=== PATIENT | male | born 1955 | race Caucasian/White ===

== ENCOUNTER 2018-08-15 12:13 | Inpatient (IN) | payer BC ==
[~2018-08-15] VITALS: Ht 193 cm; Wt 127.5 kg
[2018-08-15] VITALS (27 sets, daily range): BP systolic 93–152; BP diastolic 48–92; PULSE 56–112; RESP 12–22; Ht 193 cm; Wt 127.5 kg
[2018-08-15] MEDS ORDERED: LATA2.5D2 OP (12:49)
[2018-08-15] MEDS ORDERED: LOSA100T15 ORAL (12:49)
[2018-08-15] MEDS ORDERED: ATOR20TA65 ORAL (12:49)
[2018-08-15] MEDS ORDERED: GABA300C16 ORAL (12:49)
[2018-08-15] MEDS ORDERED: THROMBIN (BOVINE) 5,000 UNIT VIAL TP ONE (14:12)
[2018-08-15] MEDS ORDERED: BUPIVACAINE 0.25%/EPI (SDV) 30 ML INJ ONE (14:12)
[2018-08-15] MEDS ORDERED: SURGIFOAM POWDER 1 GM KIT ONE (14:12)
[2018-08-15] MEDS ORDERED: POLYMYXIN/BACITRACIN 1L IRRIG ONE (14:13)
[2018-08-15] MEDS ORDERED: HEPARIN 1000 UNITS/ML 10 ML INJ ONE (14:13)
[2018-08-15] MEDS ORDERED: CA CHLORIDE 10% 10 ML SYRINGE ONE (14:13)
--- NOTE | 2018-08-15 14:18 | PREAC ---
Date/Time of Note Date/Time of Note DATE: 08/15/18 TIME: 14:15 Anesthesia Eval and Record Evaluation Time Pre-Procedure Interview DATE: 08/15/18 TIME: 14:15 Age 63 Sex male NPO: 8 hrs Preoperative diagnosis L3-L4 stenosis and intraspinal, extradural cyst and radiculopathy Planned procedure L3-L4 decompression with removal of interspinal, extradural cyst Past Medical History Past Medical History: Includes Cardio: HTN, Dyslipidemia GI: Obesity Surgery & Anesthesia Issues No known issue Meds Anticoagulation: No Beta Jolie within 24 hr: No Reason Beta Jolie not given: Pt. not on B-Jolie Reported Medications Gabapentin* (Gabapentin*) 300 Mg Capsule, 1 CAP ORAL TID 08/15/18 Atorvastatin Calcium (Atorvastatin Calcium) 20 Mg Tablet, 1 TAB ORAL DAILY 08/15/18 Losartan Potassium* (Losartan Potassium*) 100 Mg Tablet, 1 TAB ORAL DAILY 08/15/18 Latanoprost (Latanoprost) 2.5 Ml Drops, 1 DROP OP QHS 08/15/18 Meds reviewed: Yes Allergies Coded Allergies: No Known Allergy (Unverified , 08/15/18) Allergies Reviewed: Yes Labs/Studies Labs Reviewed: Reviewed by anesthesiologist test: N/A Studies: ECG, CXR Pre-procedure Exam Last vitals Vital Signs Date Temp Pulse Resp B/P (MAP) Pulse Ox O2 O2 Flow FiO2 Time Delivery Rate 08/15/18 98.1 70 16 136/92 99 Room Air 13:18 (107) Airway: Adequate mouth opening, Adequate thyromental dist Mallampati: Mallampati II Teeth: Normal Lung: Normal Heart: Normal ASA Physical Status ASA physical status: 2 Emergency: None Planned Anesthetic General/MAC: ETT Planned Pain Management Parenteral pain med Pre-operative Attestations Prior to commencing anesthesia and surgery, the patient was re-evaluated, there was verification of: *The patient's identity *The results of appropriate recent lab work and preoperative vital signs *The above evaluation not changing prior to induction *Anesthetic plan, risk benefits, alternative and complications discussed with patient/family; questions answered; patient/family understands, accepts and wishes to proceed. MICHA MEEK MD Aug 15, 2018 14:18
--- NOTE | 2018-08-15 14:27 | HPN ---
Date/Time of Note Date/Time of Note DATE: 08/15/18 TIME: 14:27 Interval H&P Admission Note Pt. seen H&P reviewed: No system changes LISET CERRATO PA-C Aug 15, 2018 14:27
[2018-08-15] MEDS ORDERED: HYDROCODONE/APAP (10/325) TAB PO PRN ×2 (14:30)
[2018-08-15] MEDS ORDERED: BISACODYL 10 MG SUPP PR PRN (14:30)
[2018-08-15] MEDS ORDERED: DIPHENHYDRAMINE 25 MG CAP PO PRN (14:30)
[2018-08-15] MEDS ORDERED: NALOXONE (0.4 MG/ML) INJ IV PRN (14:30)
[2018-08-15] MEDS ORDERED: DIPHENHYDRAMINE 50 MG INJ IV PRN ×2 (14:30→15:00)
[2018-08-15] MEDS ORDERED: HYDROmorphONE 0.5 MG/0.5 ML SYG IV PRN (14:30)
[2018-08-15] MEDS ORDERED: AL HYDROX/MG HYDROX/SIMETH 30 ML CUP PO PRN (14:30)
[2018-08-15] MEDS ORDERED: CYCLOBENZAPRINE 10 MG TAB PO PRN (14:30)
[2018-08-15] MEDS ORDERED: CEPASTAT LOZENGE MT PRN (14:30)
[2018-08-15] MEDS ORDERED: ONDANSETRON 4 MG INJ IV PRN ×2 (14:30→15:00)
[2018-08-15] MEDS ORDERED: ACETAMINOPHEN 325 MG TAB PO PRN (14:30)
[2018-08-15] MEDS ORDERED: FENTAnyl 50 MCG/ML VIAL ONE (14:56)
[2018-08-15] MEDS ORDERED: MIDAZOLAM 1 MG/ML 2 ML INJ ONE (14:56)
[2018-08-15] MEDS ORDERED: FENTAnyl 50 MCG/ML VIAL IV PRN ×3 (15:00)
[2018-08-15] MEDS ORDERED: EPHEDrine SULFATE 50 MG/5 ML SYG IV PRN (15:00)
[2018-08-15] MEDS ORDERED: HYDROmorphONE 1 MG/5 ML IV SYRINGE IV PRN ×3 (15:00)
[2018-08-15] MEDS ORDERED: PROCHLORPERAZINE 10 MG INJ IV PRN (15:00)
[2018-08-15] MEDS ORDERED: LABETALOL HCL 20MG INJ IV PRN (15:00)
[2018-08-15] MEDS ORDERED: hydrALAzine 20 MG INJ IV PRN (15:00)
[2018-08-15] MEDS ORDERED: OXYCODONE/ACETAMINOPHEN (5/325) TAB PO PRN (15:00)
[2018-08-15] MEDS ORDERED: MEPERIDINE 25 MG INJ IV PRN (15:00)
[2018-08-15] MEDS ORDERED: LIDOCAINE 2% (SDV) 5 ML INJ ONE (15:14)
[2018-08-15] MEDS ORDERED: PROPOFOL 40 ML ONE (15:14)
[2018-08-15] MEDS ORDERED: CEFAZOLIN 1 GM INJ ONE (15:18)
[2018-08-15] MEDS ORDERED: SUCCINYLCHOLINE CHLORIDE 100 MG/5 ML SYG IV ONE ×2 (15:37)
[2018-08-15] MEDS ORDERED: HYDROmorphONE 2 MG/ML SYG ONE (15:38)
[2018-08-15] MEDS ORDERED: DEXAMETHASONE 4 MG/ML 5 ML INJ ONE (15:38)
[2018-08-15] MEDS ORDERED: ROCURONIUM 50 MG INJ ONE ×2 (15:38→15:56)
[2018-08-15] MEDS ORDERED: ONDANSETRON 4 MG INJ ONE (15:38)
[2018-08-15] MEDS ORDERED: FAMOTIDINE 20 MG INJ ONE (15:38)
[2018-08-15] MEDS: CEFAZOLIN 1 GM/50 ML (PMX) 50 ML IVPB SCH (18:19)
--- NOTE | 2018-08-15 18:48 | PAC ---
Date/Time of Note Date/Time of Note DATE: 08/15/18 TIME: 18:47 Post-Anesthesia Notes Post-Anesthesia Note Last documented vital signs Vital Signs Date Temp Pulse Resp B/P (MAP) Pulse Ox O2 O2 Flow FiO2 Time Delivery Rate 08/15/18 Nasal 2.0 18:30 Cannula 08/15/18 98.5 18:03 08/15/18 70 16 136/92 99 13:18 (107) Activity: WNL Respiratory function: WNL Cardiovascular function: WNL Mental status: Baseline Pain reasonably controlled: Yes Hydration appropriate: Yes Nausea/Vomiting absent: Yes Comments BP: 139/65 HR; 98 RR: 15 T: 98.5 SaO2:99% MICHA MEEK MD Aug 15, 2018 18:48
[2018-08-15] MEDS: HYDROmorphONE 0.2 MG/ML PCA IV SCH (20:16)
--- NOTE | 2018-08-15 20:39 | OPR ---
DATE OF OPERATION: 08/15/2018 PREOPERATIVE DIAGNOSES: 1. 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 2. Lumbar radiculopathy. 3. Previous L4-L5 instrumented fusion POSTOPERATIVE DIAGNOSIS: 1. 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 2. Lumbar radiculopathy. 3. Previous L4-L5 instrumented fusion PROCEDURES PERFORMED: 1. L3-L4 decompression with removal of bilateral intraspinal extradural cyst. 2. Use of C-arm fluoroscopy with interpretation without radiologist present. 3. Use of operative microscope. 4. Intraoperative neuromonitoring. PRIMARY SURGEON: Ricco Pradhan M.D. CTE TEACHER: Essence Kirk PA-C. NEED FOR COURT BAILIFF: During this spinal surgical procedure, my pet care assistant was used to retract and protect the spinal nerves and dural sac. My pet care assistant also employed the suction catheters to ev acuate blood from the surgical field to improve visualization of the neural structures. The assistan t was medically necessary to facilitate the completion of the surgery in a safe and expeditious [facility]. [facility] regulations, as well as hospital bylaws, preclude the use of non-licensed [facility] care personnel, such as operating room technicians, to perform these functions. FINDINGS: Neuromonitoring at the start of the case revealed left L3 amplitude down 50%, right L3 bang n 20%, left L4 down 60%, right L4 down 20%, left L5 down 40%, right L5 down 30%. At the end of the c ase, nerve signals returned to normal. The patient had synovial cysts bilaterally at L3-L4 resulting in stenosis. The scar tissue was encountered from the previous surgery. ESTIMATED BLOOD LOSS: Less than 50 mL. DRAINS: 1. SPECIMENS: L3 spinous processes well as synovial cyst from L3-L4. COMPLICATIONS OF PROCEDURES: None. ANESTHESIOLOGIST: Dr. Richardson. TYPE OF ANESTHESIA: General. INDICATIONS FOR PROCEDURE: This is a 63-year-old gentleman who had previously undergone L4-L5 instru mented fusion. He developed a synovial cyst at the L3-L4 level, which resulted in stenosis. This ca used pain down his lower extremities. He failed nonoperative measures; therefore, it is recommended he undergo the above procedure. Preoperatively, we discussed risks, benefits, and alternatives. He understood and wished to proceed. We discussed just a decompression, but he understood that he may r equire a fusion procedure in the future. DESCRIPTION OF PROCEDURE IN DETAIL: The patient was identified in the preoperative holding area, giv en 3 grams of Ancef, taken to the operating room, where he was successfully placed under general anes thesia. Neuromonitoring leads were placed, sequential compressive devices were applied. Remote intr aoperative neuromonitoring was performed by Dr. Alfaro from 15:00 until 17:40 to include SSEP, MEP , and EMG performed by [employer] [facility]. The patient was placed on prone position over [place] frame. All bony prominences were well padded. The back was then prepped and draped in a sterile fashion. Using the sterile fluoroscope, I identified the incision site. I used a portion of the patient's pr evious incision using the superior half. I injected Marcaine and epinephrine. I incised the skin do wn to dorsal fascia. I then incised the dorsal fascia and subperiosteally dissected the L3 lamina bi laterally. Significant scar tissue was encountered altering the field and adding at least 30 minutes to the procedure. I then subperiosteally dissected the L4 lamina. I identified the pedicle screws of L3. I then placed Kochers around the L3 spinous processes and took a lateral film to confirm the correct levels. Once this was confirmed, I removed the spinous process with a Jayme rongeur and se nt this off to pathology. I then used a high-speed bur to thin down the lamina. I then performed a central decompression of L3. I left the superior portion of the lamina intact in order to not fully destabilize the level. I then also made sure I left the pars intact and the majority of the facets. Ligamentum flavum was then I encountered. Microscope was brought in and under the microscope, I div ided the ligamentum flavum in the midline. I then initially removed the ligamentum flavum on the rig ht side as well as a synovial cyst on the right side, which was intraspinally located, but extradural located. Once this was done, I was able to decompress the lateral recess as well as the exiting L4 nerve root. I then turned my attention to the left. He had a synovial cyst was even more adherent to the dura as it was on the right side. I then removed ligamentum flavum and a synovial cyst on this side as well and decompressed the L4 nerve root. Once this was done, I achieved hemostasis with bipolar cautery. Valsalva was performed and there was no leak of CSF. All nerve signals returned to normal. At thi s point. I irrigated the wound. I then placed a deep subfascial drain. I injected PPP and thrombin for hemostatic purposes. I then closed deep fascia with a #1 Vicryl stitch. Microscope was taken o ff the field. A closed subcutaneous tissue with a 2-0 Vicryl stitch. A 4-0 Monocryl closure was the n performed. Dermabond and sterile dressings were then applied. The patient was awakened from anest hesia and taken to the recovery room in stable condition. Lap, sponge and needle counts were correct x2. There were no apparent complications during the procedure. The patient will be admitted to the orthopedic gomes for routine postoperative care to include pain co ntrol, neurovascular checks, antibiotics, and physical therapy. Dictated By: RICCO PRADHAN MD BB/NTS Conf#: [id number] DID#: [id number] CC: RICCO PRADHAN MD; TONIA RAE MD;*EndCC*
[2018-08-15] MEDS ORDERED: LATANOPROST 0.005% 2.5 ML OPH BOTH EYES SCH (21:00)
--- NOTE | 2018-08-15 21:03 | CONS ---
DATE OF ADMISSION: 08/15/2018 DATE OF CONSULTATION: 08/15/[address] Pradhan: Thank you, Dr. Pradhan for asking me to participate in medical management of this patient. REASON FOR CONSULTATION: To manage the patient's hyperlipidemia, hypertension. HISTORY OF PRESENT ILLNESS: This 63-year-old man has been having low back pain that radiates into shant th buttocks. He failed medical therapy and decided to undergo surgery, which was done today by Dr. Dinah yeh. The patient has been having this pain for about 6 months. He underwent an L3-L4 level dec ompression with removal of intraspinal extradural cyst. PAST MEDICAL HISTORY: Remarkable for asthma as a child, glaucoma, hypertension, hypothyroidism, hype rlipidemia, osteoarthritis. PAST SURGICAL HISTORY: Arthroscopic hip surgery, arthroscopic knee surgery, bilateral cataract extra ction, cholecystectomy, gastric bypass, previous lumbar spine fusion surgery, palate uvula biopsy exc ision. CURRENT MEDICATIONS: 1. Atorvastatin 20 mg a day. 2. Gabapentin 300 mg 3 times a day. 3. Latanoprost ophthalmic solution both eyes at bedtime. 4. Losartan 100 mg a day. 5. Buprenorphine 2 mg sublingual p.r.n. 6. Celebrex 200 mg twice a day, not taking since 08/04/18. SOCIAL HISTORY: The patient is . Former smoker, drinks alcohol occasionally. PHYSICAL EXAMINATION: GENERAL: At this time reveals a well-developed man in no apparent distress. VITAL SIGNS: Temperature 98, pulse is 70, respirations 16, blood pressure 136/92, O2 saturation 99% on 2 liters nasal cannula. HEENT: Head normocephalic. Eyes: Extraocular muscles are intact. NOSE AND MOUTH: Normal. NECK: Supple. No neck vein distention. LUNGS: Clear to auscultation. HEART: Regular rhythm. No murmurs, gallops or rubs. ABDOMEN: Soft, nontender, no masses or organomegaly. EXTREMITIES: No peripheral edema. IMPRESSION: 1. This patient is now postop a lumbar spine surgery. He is awake and alert and answers questions a ppropriately. His vital signs are stable and he seems comfortable with his pain under control. I wi ll manage the patient's hypertension, hyperlipidemia and glaucoma. PLAN: 1. Resume routine medications. 2. Check labs in the morning. 3. Postop lumbar spine surgery protocol. 4. I will follow the patient along with you medically. Dictated By: MARCIE LLAMAS MD ND/YAAKOV Conf#: [id number] DID#: [id number] CC: TONIA RAE MD; YAZMIN PRADHAN MD;*End*
[2018-08-15] MEDS: GABAPENTIN 300 MG CAP PO SCH (22:47)
[2018-08-15] MEDS: DOCUSATE SODIUM 100 MG CAP PO SCH (22:48)
[2018-08-15] MEDS: D5W-0.45 NACL + KCL 20 MEQ 1,000 ML IV SCH (22:50)
[2018-08-16] MEDS: D5W-0.45 NACL + KCL 20 MEQ 1,000 ML IV SCH ×2 (00:27→08:35)
[2018-08-16 00:30] VITALS: BP 114/61; PULSE 103
[2018-08-16 01:30] VITALS: BP 113/62; PULSE 95; RESP 18
[2018-08-16] MEDS: CEFAZOLIN 1 GM/50 ML (PMX) 50 ML IVPB SCH ×2 (01:39→08:31)
[2018-08-16] MEDS: HYDROmorphONE 0.2 MG/ML PCA IV SCH ×2 (02:50→13:25)
[2018-08-16 07:17] VITALS: BP 131/72; PULSE 74; RESP 18
[2018-08-16] MEDS: DOCUSATE SODIUM 100 MG CAP PO SCH (08:32)
[2018-08-16] MEDS: GABAPENTIN 300 MG CAP PO SCH ×2 (08:33→13:24)
[2018-08-16] MEDS ORDERED: LOSARTAN 50 MG TAB PO SCH ×2 (09:00→21:00)
[2018-08-16] MEDS ORDERED: ATORVASTATIN 20 MG TAB PO SCH (09:00)
--- NOTE | 2018-08-16 09:02 | CONS ---
Assessment/Plan Assessment/Plan Hospital Course (Demo Recall) 1. This patient is now 1 day postop a lumbar spine surgery. He is doing well. He is afebrile, vital signs are stable, and his laboratory tests are acceptable. He will continue physical therapy as tolerated. His routine medications have been reordered. Consultation Date/Type/Reason Admit Date/Time Aug 15, 2018 at 12:13 Initial Consult Date Type of Consult Medicine Date/Time of Note DATE: 08/16/18 TIME: 09:00 24 HR Interval Summary Free Text/Dictation He is 1 day postop a lumbar spine surgery. He is awake and alert. He feels well . The leg pain that he had preoperatively but the has diminished. Constitutional: no complaints, improved Exam/Review of Systems Exam Vitals Vital Signs Date Temp Pulse Resp B/P (MAP) Pulse Ox O2 O2 Flow FiO2 Time Delivery Rate 08/16/18 98.2 74 18 131/72 97 07:17 (91) 08/16/18 Nasal 2.0 01:30 Cannula Intake and Output 08/15/18 08/15/18 08/16/18 1515:00 23:00 07:00 IntakeIntake Total 2310 ml 1130 ml OutputOutput Total 120 ml 1050 ml BalanceBalance 2190 ml 80 ml Constitutional: alert, oriented, well developed Respiratory: clear to auscultation, normal air movement Cardiovascular: regular rate and rhythm Gastrointestinal: soft, non-tender Musculoskeletal: nl extremities to inspection Results Result Diagram: 08/16/18 0446 08/16/18 0446 Results 24hrs Laboratory Tests Test 08/16/18 04:46 08/16/18 07:29 White Blood Count 11.7 H Red Blood Count 3.88 L Hemoglobin 13.4 L Hematocrit 39.6 L Mean Corpuscular Volume 102.1 H Mean Corpuscular Hemoglobin 34.5 H Mean Corpuscular Hemoglobin Concent 33.8 Red Cell Distribution Width 12.2 Platelet Count 135 L Mean Platelet Volume 10.1 Immature Granulocytes % 0.300 Neutrophils % 78.9 H Lymphocytes % 10.8 L Monocytes % 9.8 Eosinophils % 0.0 Basophils % 0.2 Nucleated Red Blood Cells % 0.0 Immature Granulocytes # 0.040 H Neutrophils # 9.2 H Lymphocytes # 1.3 Monocytes # 1.1 H Eosinophils # 0.0 Basophils # 0.0 Nucleated Red Blood Cells # 0.0 Sodium Level 139 Potassium Level 5.0 Chloride Level 106 Carbon Dioxide Level 24 Anion Gap 9 Blood Urea Nitrogen 13 Creatinine 0.78 Est Glomerular Filtrat Rate mL/min > 60 Glucose Level 125 Calcium Level 9.0 Magnesium Level 1.9 Lab Scanned Report REFERENCE LAB Medications Medication Current Medications Potassium Chloride/Dextrose/ Sod Cl 1,000 ml @ 100 mls/hr Q10H IV Last administered on 08/16/18at 08:35; Admin Dose 100 MLS/HR; Start 08/15/18 at 14:27 Acetaminophen/ Hydrocodone Bitart (Ona (10325)) 1 tab Q4H PRN PO .PAIN 1-5; Start 08/15/18 at 14:30 Acetaminophen/ Hydrocodone Bitart (Ona (10325)) 2 tab Q4H PRN PO .PAIN 6-10 Last administered on 08/15/18at 19:48; Admin Dose 2 TAB; Start 08/15/18 at 14:30 Hydromorphone HCl (Dilaudid) 0.2 mg Q1H PRN IV .BREAKTHROUGH PAIN; Start 08/15/18 at 14:30 Ondansetron HCl (Zofran Inj) 4 mg Q6H PRN IV NAUSEA/VOMITING; Start 08/15/18 at 14:30 Bisacodyl (Dulcolax Supp) 10 mg DAILY PRN HI .CONSTIPATION; Start 08/15/18 at 14:30 Docusate Sodium (Colace) 100 mg BID PO Last administered on 08/16/18at 08:32; Admin Dose 100 MG; Start 08/15/18 at 21:00 Al Hydrox/Mg Hydrox/Simethicone (Mag-Al Plus) 15 ml Q6H PRN PO .CONSTIPATION/DYSPEPSIA; Start 08/15/18 at 14:30 Acetaminophen (Tylenol Tab) 650 mg Q4H PRN PO PEDERSON OR TEMP GREATER THAN 101.3F; Start 08/15/18 at 14:30 Cyclobenzaprine HCl (Flexeril) 10 mg TID PRN PO .MUSCLE SPASMS; Start 08/15/18 at 14:30 Phenol (Cepastat Lozenge) 1 lozenge PRN PRN MT .SORE THROAT; Start 08/15/18 at 14:30 Diphenhydramine HCl (Benadryl) 25 mg Q6H PRN PO .ITCHING; Start 08/15/18 at 14:30 Diphenhydramine HCl (Benadryl) 25 mg Q6H PRN IV .ITCHING; Start 08/15/18 at 14:30 Naloxone HCl (Narcan) 0.2 mg Q2M PRN IV .RR 8 BREATHS/MIN OR LESS; Start 08/15/18 at 14:30 Atorvastatin Calcium (Lipitor) 20 mg DAILY PO Last administered on 08/16/18at 08:32; Admin Dose 20 MG; Start 08/16/18 at 09:00 Gabapentin (Neurontin) 300 mg TID PO Last administered on 08/16/18at 08:33; Admin Dose 300 MG; Start 08/15/18 at 21:00 Latanoprost (Xalatan) 1 drop QHS BOTH EYES ; Start 08/15/18 at 21:00 Hydromorphone HCl (Dilaudid SETTER OFF) 0.0 MG/HR CONTINUOUS RATE ... Q4PCA IV Last administered on 08/16/18at 02:50; Admin Dose 6 MG; Start 08/15/18 at 20:00 Losartan Potassium (Cozaar) 100 mg HS PO ; Start 08/16/18 at 21:00 MARCIE LLAMAS MD Aug 16, 2018 09:02
--- NOTE | 2018-08-16 09:08 | PN ---
Date/Time of Note Date/Time of Note DATE: 08/16/18 TIME: 09:06 Assessment/Plan Lines/Catheters IV Catheter Type (from Nrsg): Peripheral IV Silva in Place (from Nrsg): No Assessment/Plan Assessment/Plan POD #1 s/p L3-4 decompression and cyst removal ambulate, PT pain control routine care please record drain output today and if decreased we can D/C home later today Subjective 24 Hr Interval Summary pt c/o LBP no leg pain Exam/Review of Systems Vital Signs Vitals Vital Signs Date Temp Pulse Resp B/P (MAP) Pulse Ox O2 O2 Flow FiO2 Time Delivery Rate 08/16/18 98.2 74 18 131/72 97 07:17 (91) 08/16/18 Nasal 2.0 01:30 Cannula Intake and Output 08/15/18 08/15/18 08/16/18 1515:00 23:00 07:00 IntakeIntake Total 2310 ml 1130 ml OutputOutput Total 120 ml 1050 ml BalanceBalance 2190 ml 80 ml Exam Free Text/Dictation drain output 100cc/last shift Results Result Diagram: 08/16/18 0446 08/16/18 0446 LISET CERRATO PA-C Aug 16, 2018 09:08
[2018-08-16 13:38] VITALS: BP 122/64; PULSE 79; RESP 18
--- NOTE | 2018-08-16 18:12 | DS ---
Date/Time of Note Date/Time of Note DATE: 08/16/18 TIME: 18:11 Discharge Summary Admission/Discharge Info Admit Date/Time Aug 15, 2018 at 12:13 Discharge Date/Time Aug 16, 2018 at 16:55 Discharge Diagnosis LUMBAR DECOMPRESSION Patient Condition: Good Procedures LUMBAR DECOMPRESSION Hospital Course PATIENT WAS ADMITTED TO THE [facility] AFTER UNDERGOING A LUMBAR DECOMPRESSION. HIS POST-OPERATIVE COURSE WAS UNCOMPLICATED. hIS PAIN IMPROVED. BY POST OPERATIVE DAY #1 HE WAS DEEMED STABLE FOR DISCHARGE WITH FOLLOW-UP ARRANGED WITH THE UNDERSIGNED. Home Meds Reported Medications Gabapentin* (Gabapentin*) 300 Mg Capsule, 1 CAP ORAL TID 08/15/18 Atorvastatin Calcium (Atorvastatin Calcium) 20 Mg Tablet, 1 TAB ORAL DAILY 08/15/18 Losartan Potassium* (Losartan Potassium*) 100 Mg Tablet, 1 TAB ORAL DAILY 08/15/18 Latanoprost (Latanoprost) 2.5 Ml Drops, 1 DROP OP QHS 08/15/18 Primary Care Provider Not On Staff Doctor Pending Labs Laboratory Tests Test 08/16/18 04:46 08/16/18 07:29 White Blood Count 11.7 10^3/ul (4.8-10.8) Red Blood Count 3.88 10^6/ul (4.70-6.10) Hemoglobin 13.4 g/dl (14.0-18.0) Hematocrit 39.6 % (42.0-52.0) Mean Corpuscular Volume 102.1 fl (82.0-101.0) Mean Corpuscular Hemoglobin 34.5 pg (29.0-33.0) Mean Corpuscular 33.8 g/dl (32.0-37.0) Hemoglobin Concent Red Cell Distribution Width 12.2 % (11.5-14.5) Platelet Count 135 10^3/UL (140-415) Mean Platelet Volume 10.1 fl (7.4-10.4) Immature Granulocytes % 0.300 % (0.001-0.429) Neutrophils % 78.9 % (39.0-77.0) Lymphocytes % 10.8 % (15.0-51.0) Monocytes % 9.8 % (0.0-11.0) Eosinophils % 0.0 % (0.0-7.0) Basophils % 0.2 % (0.0-2.0) Nucleated Red Blood Cells % 0.0 /100WBC (0.0-0.0) Immature Granulocytes # 0.040 10^3/ul (0.0-0.031) Neutrophils # 9.2 10^3/ul (1.6-7.5) Lymphocytes # 1.3 10^3/ul (0.8-2.9) Monocytes # 1.1 10^3/ul (0.3-0.9) Eosinophils # 0.0 10^3/ul (0.0-0.5) Basophils # 0.0 10^3/ul (0.0-0.1) Nucleated Red Blood Cells # 0.0 10^3/ul (0.0-0.0) Sodium Level 139 mmol/L (135-144) Potassium Level 5.0 mmol/L (3.5-5.1) Chloride Level 106 mmol/L (97-110) Carbon Dioxide Level 24 mmol/L (21-31) Anion Gap 9 (5-13) Blood Urea Nitrogen 13 mg/dl (7-20) Creatinine 0.78 mg/dl (0.61-1.24) Est Glomerular Filtrat > 60 mL/min (>60) Rate mL/min Glucose Level 125 mg/dl (70-220) Calcium Level 9.0 mg/dl (8.4-10.2) Magnesium Level 1.9 mg/dl (1.7-2.5) Lab Scanned Report REFERENCE LAB [id number] YAZMIN ANGEL MD Aug 16, 2018 18:12
== END 2018-08-16 16:55 | disposition home or self-care (01) | DRG 520 ==
LOC: REC 12:13 → EDSTATUS 14:30 → MS1 20:45
PROVIDERS: ADMIT Specialist; ATTEND Specialist
PROC: 01NB0ZZ Release Lumbar Nerve, Open Approach (ICD-10-PCS; 2018-08-15)
PROC: 00BY0ZZ Excision of Lumbar Spinal Cord, Open Approach (ICD-10-PCS; principal; 2018-08-15 14:30)
DX: M71.38 Other bursal cyst, other site (principal); M48.061 Spinal stenosis, lumbar region without neurogenic claudication; M54.16 Radiculopathy, lumbar region; Z98.1 Arthrodesis status; E78.5 Hyperlipidemia, unspecified; I10 Essential (primary) hypertension; E66.9 Obesity, unspecified; Z98.84 Bariatric surgery status
CPT/HCPCS: 72100; 80048; 83735; 85025; 86999; 88304; 88311; 97116; 97162; 97530; J0690; J1100; J1170; J1200; J1644; J2175; J2250; J2405; J3010; J3480